=== PATIENT | male | born 1950 | race Caucasian/White ===

== ENCOUNTER 2019-05-04 12:48 | Emergency (ER) | payer SELFPAY ==
[~2019-05-04] VITALS: Ht 172.7 cm; Wt 64.0 kg
[2019-05-04] MEDS ORDERED: SODIUM CHLORIDE 0.9% 1,000 ML IV ONE (13:08)
[2019-05-04] MEDS ORDERED: ONDANSETRON HCL 4MG/2ML INJ IV ONE (13:15)
[2019-05-04 15:17] LABS: CHLORIDE 105 mEq/L (98-107)
[2019-05-04 15:20] LABS: BASOPHILS % 0.3 % (0.0-2.0); EOSINOPHILS % 0.5 % (0.0-5.0); HEMATOCRIT. 43.2 % (42.0-52.0); HEMOGLOBIN. 14.2 g/dL (14.0-18.0); LYMPHOCYTES % 14.1 % (20.0-50.0); MEAN CORPUSCULAR HEMOGLOBIN 28.3 pg (28.0-32.0); MEAN CORPUSCULAR VOLUME 86.1 fL (80.0-94.0); MEAN PLATELET VOLUME 7.5 fl (7.4-10.4); MONOCYTES % 8.1 % (2.0-8.0); PLATELET 302 x1000/uL (130-400); RED BLOOD CELL COUNT 5.01 mill/uL (4.7-6.1); RED CELL DISTRIBUTION WIDTH 17.9 % (11.6-14.6)
[2019-05-04 15:41] LABS: ETHANOL BLOOD 321 mg/dL
[2019-05-04 18:50] VITALS: BP 100/45
== END 2019-05-04 23:03 | disposition left against medical advice (07) ==
LOC: EDBD 12:48 → ER 12:48
DX: F10.229 Alcohol dependence with intoxication, unspecified (principal); T51.0X1A Toxic effect of ethanol, accidental (unintentional), initial encounter; G92 Toxic encephalopathy; F19.10 Other psychoactive substance abuse, uncomplicated; Y90.8 Blood alcohol level of 240 mg/100 ml or more; Y92.89 Other specified places as the place of occurrence of the external cause
CPT/HCPCS: 36415; 70450; 71045; 80053; 80307; 80320; 80329; 85025; 96361; 96374; 99285; J2405; J7030; Z7610; G0480

== ENCOUNTER 2019-05-04 21:19 | Emergency (ER) | payer SELFPAY ==
[~2019-05-04] VITALS: Ht 160 cm; Wt 59.0 kg
[2019-05-04 21:23] VITALS: BP 106/60
[2019-05-04 21:57] LABS: HEMATOCRIT. 41.6 % (42.0-52.0); MEAN CORPUSCULAR VOLUME 86.3 fL (80.0-94.0); MEAN PLATELET VOLUME 7.5 fl (7.4-10.4); PLATELET 293 x1000/uL (130-400); RED BLOOD CELL COUNT 4.82 mill/uL (4.7-6.1); RED CELL DISTRIBUTION WIDTH 17.6 % (11.6-14.6)
[2019-05-04 22:10] LABS: CHLORIDE 109 mEq/L (98-107)
[2019-05-04] MEDS ORDERED: SODIUM CHLORIDE 0.9% 1,000 ML IV ONE (22:22)
[2019-05-04] MEDS ORDERED: LORAZEPAM 2MG/ML CPJ IV STA (22:22)
[2019-05-04] MEDS ORDERED: FOLIC ACID 1 MG, THIAMINE HCL 100 MG, MVI, ADULT NO.1 10 ML in DEXTROSE 5% WATER 1,000 ML IV ONE ×4 (22:30)
[2019-05-04 22:35] LABS: PLATELET ESTIMATE NORMAL
== END 2019-05-05 03:33 | disposition left against medical advice (07) ==
LOC: ER 21:19 → CANBEDREQ 05-05 03:38
DX: R07.89 Other chest pain (principal); F10.229 Alcohol dependence with intoxication, unspecified; Z98.890 Other specified postprocedural states; Y90.8 Blood alcohol level of 240 mg/100 ml or more
CPT/HCPCS: 36415; 80053; 80320; 83880; 84484; 85025; 93005; 99285; J3411; J3490; J7030; J7070; G0480